=== PATIENT | female | born 1960 | race Caucasian/White ===

== ENCOUNTER 2018-07-03 06:14 | Inpatient (IN) | payer MEDICARE, BC ==
[2018-07-03] MEDS: GABAPENTIN 300 MG CAP PO ×2 (06:58→20:14)
[2018-07-03] MEDS: DEXAMETHASONE 1 MG TAB PO (06:59)
[2018-07-03] MEDS ORDERED: POLYMYXIN/BACITRACIN 1L IRRIG (07:06)
[2018-07-03] MEDS ORDERED: THROMBIN 5000 UNIT VIAL (07:06)
[2018-07-03] MEDS ORDERED: CA CHLORIDE 10% 10 ML SYRINGE (07:06)
[2018-07-03] MEDS ORDERED: BUPIVACAINE 0.5%/EPI (SDV) 30 ML INJ (07:06)
[2018-07-03] MEDS ORDERED: ROPIVACAINE 0.5 % 30 ML VIAL (08:04)
[2018-07-03] MEDS ORDERED: PROPOFOL 20 ML (08:04)
[2018-07-03] MEDS ORDERED: MIDAZOLAM 1 MG/ML 2 ML INJ (08:04)
[2018-07-03] MEDS ORDERED: CEFAZOLIN 1 GM INJ (08:04)
[2018-07-03] MEDS ORDERED: ROCURONIUM 50 MG INJ (08:04)
[2018-07-03] MEDS ORDERED: DIPHENHYDRAMINE 50 MG INJ IV ×2 (08:30→10:30)
[2018-07-03] MEDS ORDERED: LABETALOL HCL 20MG INJ IV (08:30)
[2018-07-03] MEDS ORDERED: FENTAnyl 50 MCG/ML VIAL IV ×3 (08:30)
[2018-07-03] MEDS ORDERED: DEXAMETHASONE 4 MG/ML 5 ML INJ (08:30)
[2018-07-03] MEDS ORDERED: ONDANSETRON 4 MG INJ IV ×2 (08:30→10:30)
[2018-07-03] MEDS ORDERED: ONDANSETRON 4 MG INJ (08:30)
[2018-07-03] MEDS ORDERED: METOCLOPRAMIDE 10 MG INJ (08:30)
[2018-07-03] MEDS ORDERED: hydrALAzine 20 MG INJ IV (08:30)
[2018-07-03] MEDS ORDERED: METOCLOPRAMIDE 10 MG INJ IV (08:30)
[2018-07-03] MEDS ORDERED: EPHEDrine SULFATE 50 MG/5 ML SYG IV (08:30)
[2018-07-03] MEDS ORDERED: MEPERIDINE 25 MG INJ IV (08:30)
[2018-07-03] MEDS ORDERED: KETOROLAC 30 MG INJ (08:30)
[2018-07-03] MEDS ORDERED: HYDROmorphONE 1 MG/5 ML IV SYRINGE IV ×3 (08:30)
[2018-07-03] MEDS: TRANEXAMIC ACID 1,000 MG in DEXTROSE 5% 100 ML IVPB (08:40)
[2018-07-03] MEDS: CEFAZOLIN 2 GM/50 ML (PMX) 50 ML IVPB (08:41)
[2018-07-03] MEDS: POLYMYXIN/BACITRACIN 1L IRRIG IRR (09:20)
[2018-07-03] MEDS: BUPIVACAINE 0.5% (SDV) 30 ML, morphine SULFATE (PF) 8 MG, EPINEPHrine 0.3 MG, KETOROLAC... IRR (09:20)
[2018-07-03] MEDS ORDERED: SUGAMMADEX SODIUM 200 MG/2 ML VIAL IV (10:04)
[2018-07-03] MEDS ORDERED: oxyCODONE 5 MG TAB PO ×3 (10:30)
[2018-07-03] MEDS ORDERED: MAGNESIUM HYDROXIDE 30ML CUP PO (10:30)
[2018-07-03] MEDS ORDERED: NACL 0.9% 3 ML SYG IV (10:30)
[2018-07-03] MEDS ORDERED: ZOLPIDEM 5 MG TAB PO (10:30)
[2018-07-03] MEDS ORDERED: LOPERAMIDE 2 MG CAP PO (10:30)
[2018-07-03] MEDS ORDERED: CEFAZOLIN 1 GM/50 ML (PMX) 50 ML IVPB (10:36)
[2018-07-03] MEDS: CEFAZOLIN 1 GM/50 ML (PMX) 50 ML IVPB ×2 (11:28→18:06)
[2018-07-03] MEDS: DEXAMETHASONE 2 MG TAB PO ×3 (12:00→23:30)
[2018-07-03] MEDS ORDERED: TRANEXAMIC ACID 1,000 MG in SOD CHLORIDE 0.9% 100 ML IVPB (12:00)
[2018-07-03] MEDS: ACETAMINOPHEN 500 MG TAB PO ×3 (12:00→23:34)
[2018-07-03] MEDS: ATORVASTATIN 20 MG TAB PO (20:11)
[2018-07-03] MEDS: PROGESTERONE 100 MG CAP PO (20:14)
[2018-07-03] MEDS: SENNA/DOCUSATE NA (8.6MG/50MG) TAB PO (20:14)
[2018-07-03] MEDS ORDERED: NON-FORMULARY/PATIENT OWN MED (Rosuvastatin Calcium* (Crestor*) 5 MG) PO (21:00)
[2018-07-03] MEDS ORDERED: GABAPENTIN 300 MG CAP PO (21:00)
[2018-07-03] MEDS ORDERED: LORAZEPAM 1 MG TAB PO (21:00)
[2018-07-03] MEDS: HYDROmorphONE 1 MG/ML SYG IV (23:18)
[2018-07-04] MEDS: CEFAZOLIN 1 GM/50 ML (PMX) 50 ML IVPB (02:50)
[2018-07-04] MEDS: HYDROmorphONE 1 MG/ML SYG IV ×2 (04:18→08:03)
[2018-07-04] MEDS: ACETAMINOPHEN 500 MG TAB PO (06:13)
[2018-07-04] MEDS: DEXAMETHASONE 2 MG TAB PO (06:13)
[2018-07-04] MEDS: LEVOTHYROXINE 25 MCG TAB PO (06:13)
[2018-07-04] MEDS: LOSARTAN 50 MG TAB PO (08:24)
[2018-07-04] MEDS: AMLODIPINE 5 MG TAB PO (08:24)
[2018-07-04] MEDS: SENNA/DOCUSATE NA (8.6MG/50MG) TAB PO (08:24)
[2018-07-04] MEDS ORDERED: NON-FORMULARY/PATIENT OWN MED (Thyroid,Pork (Nature-Throid) 32.5 MG) PO (09:00)
[2018-07-04] MEDS: KETOROLAC 15 MG INJ IV (10:23)
== END 2018-07-04 11:42 | disposition home or self-care (01) | DRG 483 ==
LOC: REC 06:14 → MS1 16:10
PROC: 0RRJ00Z Replacement of Right Shoulder Joint with Reverse Ball and Socket Synthetic Substitute, Open Approach (ICD-10-PCS; principal; 2018-07-03 08:00)
DX: M19.211 Secondary osteoarthritis, right shoulder (principal); M75.101 Unspecified rotator cuff tear or rupture of right shoulder, not specified as traumatic; S46.211A Strain of muscle, fascia and tendon of other parts of biceps, right arm, initial encounter; I10 Essential (primary) hypertension; E78.5 Hyperlipidemia, unspecified; E03.9 Hypothyroidism, unspecified; E66.9 Obesity, unspecified; Z68.36 Body mass index [BMI] 36.0-36.9, adult
CPT/HCPCS: 73030-RT; 86999; 88304; 88311; 97167